=== PATIENT | female | born 1960 | race Caucasian/White ===

== ENCOUNTER 2025-03-12 06:50 | Day surgery (SDC) | payer MEDICAID, MEDICARE ==
[~2025-03-12 06:50] MED LIST: Sodium Chloride 0.9% 10 ML Syringe FLUSH PRN
[2025-03-12] MEDS ORDERED: Propofol 200 MG/20 ML SDV IV ONE (06:51)
[2025-03-12] MEDS: Lactated Ringers 1,000 ML IV SCH (07:12)
== END 2025-03-12 10:50 | disposition home or self-care (01) ==
LOC: FB.SDS 06:50
PROVIDERS: ATTEND Surgery
DX: Z12.11 Encounter for screening for malignant neoplasm of colon (principal); D12.0 Benign neoplasm of cecum; K63.5 Polyp of colon; D12.6 Benign neoplasm of colon, unspecified; K51.40 Inflammatory polyps of colon without complications; K57.30 Diverticulosis of large intestine without perforation or abscess without bleeding; I10 Essential (primary) hypertension; E03.9 Hypothyroidism, unspecified; E66.9 Obesity, unspecified; F17.200 Nicotine dependence, unspecified, uncomplicated; Z68.28 Body mass index [BMI] 28.0-28.9, adult; Z79.899 Other long term (current) drug therapy; Z79.890 Hormone replacement therapy
CPT/HCPCS: 00811; 45380; 45385; 88305; J2003; J2704; J7120

== ENCOUNTER 2025-04-29 06:45 | Day surgery (SDC) | payer MEDICARE ==
[2025-04-29] MEDS ORDERED: Midazolam 1 MG/ML 2 ML SDV IV ONE (06:46)
[2025-04-29] MEDS ORDERED: Propofol 200 MG/20 ML SDV IV ONE (06:46)
[2025-04-29] MEDS ORDERED: fentaNYL 100 MCG/2 ML SDV IV ONE (06:46)
[2025-04-29] MEDS: Lactated Ringers 1,000 ML IV SCH (07:47)
== END 2025-04-29 09:15 | disposition home or self-care (01) ==
LOC: FB.SDS 06:45
PROVIDERS: ATTEND Surgery
DX: K29.50 Unspecified chronic gastritis without bleeding (principal); K31.7 Polyp of stomach and duodenum; K31.89 Other diseases of stomach and duodenum; E78.00 Pure hypercholesterolemia, unspecified; I10 Essential (primary) hypertension; E03.9 Hypothyroidism, unspecified; E66.9 Obesity, unspecified; Z68.28 Body mass index [BMI] 28.0-28.9, adult; Z87.891 Personal history of nicotine dependence; Z79.899 Other long term (current) drug therapy; Z79.890 Hormone replacement therapy
CPT/HCPCS: 00731; 43239; 88305; 88342; A9270; J2250; J2704; J3010; J7120